=== PATIENT | male | born 1945 | race African-American/Black ===

== ENCOUNTER 2020-12-29 08:35 | Outpatient (CLI) | payer MEDICARE, OTHER | END 2020-12-29 08:36 | disposition home or self-care (01) | LOC: CSHMRI 08:35 | PROVIDERS: ATTEND Internal Medicine Hematology & Oncology | DX: C34.11 Malignant neoplasm of upper lobe, right bronchus or lung (principal); Z85.841 Personal history of malignant neoplasm of brain; D32.0 Benign neoplasm of cerebral meninges; R94.02 Abnormal brain scan | CPT/HCPCS: 70553 ==

== ENCOUNTER 2021-11-08 08:46 | Outpatient (CLI) | payer MEDICARE, OTHER | END 2021-11-08 08:47 | disposition home or self-care (01) | LOC: CSHWCC 08:46 | PROVIDERS: ATTEND Nurse Practitioner Family | DX: T81.89XD Other complications of procedures, not elsewhere classified, subsequent encounter (principal) | CPT/HCPCS: 97139; G0463; 99203 ==